=== PATIENT | male | born 1960 | race Two or more races ===

== ENCOUNTER 2018-04-23 06:11 | Day surgery (SDC) | payer OTHER ==
[2018-04-23] MEDS ORDERED: FENTAnyl 50 MCG/ML VIAL (08:49)
[2018-04-23] MEDS ORDERED: MIDAZOLAM 1 MG/ML 2 ML INJ ×2 (08:50)
== END 2018-04-23 12:57 | disposition home or self-care (01) ==
LOC: GIL 06:11
DX: Z12.11 Encounter for screening for malignant neoplasm of colon (principal); D12.6 Benign neoplasm of colon, unspecified; K64.8 Other hemorrhoids
CPT/HCPCS: 45380; 88305

== ENCOUNTER → 2018-04-26 | Outpatient (CLI) | payer OTHER | END | disposition home or self-care (01) | LOC: HKI 09:37 | DX: M25.562 Pain in left knee (principal); M17.12 Unilateral primary osteoarthritis, left knee | CPT/HCPCS: 73564; 73564-LT ==